=== PATIENT | male | born 1965 | race Caucasian/White ===

== ENCOUNTER → 2019-12-19 | Outpatient (CLI) | payer OTHER ==
[~2019-12-19] MED LIST: CLARITIN10 MG PO; FLONASE 0.05%50 MCG NASAL; GLUCOPHAGE1000 MG PO; KEFLEX500 MG PO; UNICOMPLEX M TA1 TA1 PO
== END ==
LOC: M.LAB 08:25
PROVIDERS: ATTEND Internal Medicine Gastroenterology
DX: Z01.812 Encounter for preprocedural laboratory examination (principal); Z11.59 Encounter for screening for other viral diseases; Z86.010 Personal history of colon polyps